=== PATIENT | male | born 1955 | race Caucasian/White ===

== ENCOUNTER → 2024-08-15 | Outpatient (CLI) | payer MEDICARE, BC ==
--- NOTE | 2024-08-15 14:12 | MR ---
EXAMINATION TYPE: MR knee RT wo con DATE OF EXAM: 08/15/2024 1:58 PM COMPARISON: None. CLINICAL INDICATION: Male, 69 years old with history of M25.561, Rt knee pain IV Contrast: cc (None if empty) TECHNIQUE: Multiplanar, multisequence imaging of the right knee is performed without IV contrast. FINDINGS: MEDIAL MENISCUS: Complex tear posterior horn medial meniscus. The anterior horn is intact. Tear appea rs to extend into the body. LATERAL MENISCUS: Anterior and posterior horns are intact without tear. CRUCIATE LIGAMENTS: The anterior and posterior cruciate ligaments are intact and unremarkable. COLLATERAL LIGAMENTS: The medial collateral ligament and lateral collateral ligament complex are inta ct and unremarkable. EXTENSOR MECHANISM: Visualized quadriceps and patellar tendons are intact. EFFUSION: No significant suprapatellar joint effusion. POPLITEAL CYST: Tiny Doll's cyst measuring 7 mm. Additional cystic lesion measuring 1.6 cm adjacent to the fibular head. TRICOMPARTMENT SPACES: Mild degenerative joint space narrowing medial tibiofemoral joint space and pa tellofemoral joint space. Superior patellar spurring. CARTILAGE: Cartilaginous thinning of the medial femoral condyle. BONE MARROW SIGNAL: No focal abnormal marrow signal is appreciated. OTHER: Multiseptated cystic structure posterior to the distal femur measuring 2.7 x 1.2 cm which may reflect ganglion cyst. IMPRESSION: 1.Complex tear posterior horn medial meniscus. The anterior horn is intact. Tear appears to extend in to the body. 2. Ganglion cysts as noted. 3. Degenerative changes of osteoarthritis. [facility], , 08/15/2024 2:10 PM
== END | disposition home or self-care (01) ==
LOC: RADMRIMAIN 13:02
PROVIDERS: ATTEND Orthopaedic Surgery
DX: S83.231A Complex tear of medial meniscus, current injury, right knee, initial encounter (principal); M67.461 Ganglion, right knee; M17.11 Unilateral primary osteoarthritis, right knee; X58.XXXA Exposure to other specified factors, initial encounter